=== PATIENT | female | born 1975 | race Caucasian/White ===

== ENCOUNTER 2020-05-21 14:30 | Emergency (ER) | payer OTHER, MEDICAID, SELFPAY ==
[2020-05-21 14:49] VITALS: BP 132/85; PULSE 81; RESP 18; TEMP 36.7; O2SAT 98; BMI 39.4
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
[2020-05-21 16:53] VITALS: BP 130/90; PULSE 78; RESP 18; O2SAT 98
[2020-05-21 17:35] VITALS: BP 117/77; PULSE 87; RESP 18; TEMP 36.8; O2SAT 97
== END 2020-05-21 17:36 | disposition home or self-care (01) ==
PROVIDERS: Emergency Provider Nurse Practitioner Family; PCP Family Medicine
DX: S22.41XA Multiple fractures of ribs, right side, initial encounter for closed fracture (principal); S66.911A Strain of unspecified muscle, fascia and tendon at wrist and hand level, right hand, initial encounter; V89.2XXA Person injured in unspecified motor-vehicle accident, traffic, initial encounter
CPT/HCPCS: 12345; 71100; 73110; 99281; 99283

== ENCOUNTER 2021-04-05 15:17 | Outpatient (CLI) | payer BC, MEDICAID, SELFPAY ==
--- NOTE | 2021-04-05 | XRR_ITS ---
PROCEDURE INFORMATION: Exam: XR Cervical Spine Exam date and time: 04/05/2021 3:58 PM Age: 45 years old Clinical indication: Neck pain TECHNIQUE: Imaging protocol: XR of the cervical spine. Views: 2 or 3 views. COMPARISON: No relevant prior studies available. FINDINGS: Bones/joints: Spinal alignment is normal. Vertebral body height is maintained. There is moderate disc space narrowing at C5-C6 and C6-C7. There is mild multilevel facet spondylosis. There is no acute fracture. Soft tissues: Visible soft tissues are unremarkable. XR/XR cervical spine 3V* [id number] IMPRESSION: No acute findings.
== END 2021-04-05 15:18 | disposition home or self-care (01) ==
PROVIDERS: PCP Family Medicine; Visit Provider Registered Nurse
DX: M54.2 Cervicalgia (principal)
CPT/HCPCS: 72040

== ENCOUNTER → 2021-05-16 11:32 | Outpatient (BNVA) | payer BC, MEDICAID, SELFPAY | PROVIDERS: PCP Family Medicine; Visit Provider Specialist | DX: R20.0 Anesthesia of skin (principal); R20.2 Paresthesia of skin | CPT/HCPCS: 95910 ==

== ENCOUNTER 2021-06-10 17:06 | Outpatient (CLI) | payer BC, MEDICAID, SELFPAY ==
--- NOTE | 2021-06-10 | XRR_ITS ---
PROCEDURE INFORMATION: Exam: XR Right Knee Exam date and time: 06/10/2021 12:00 AM Age: 45 years old Clinical indication: Pain; Knee; Right; Additional info: Chronic bilateral knee pain TECHNIQUE: Imaging protocol: XR Right knee. Views: 3 views. COMPARISON: No relevant prior studies available. FINDINGS: Bones/joints: Mild lateral compartment and patellofemoral joint productive degenerative changes. Soft tissues: Normal. XR/XR knee RT 3V* [id number] IMPRESSION: Mild lateral compartment and patellofemoral joint osteoarthritis.
--- NOTE | 2021-06-10 | XRR_ITS ---
PROCEDURE INFORMATION: Exam: XR Left Knee Exam date and time: 06/10/2021 12:00 AM Age: 45 years old Clinical indication: Pain; Knee; Left; Additional info: Chronic bilateral knee pain TECHNIQUE: Imaging protocol: XR Left knee. Views: 3 views. COMPARISON: No relevant prior studies available. FINDINGS: Bones/joints: Mild tricompartmental joint space narrowing of the knee. No evidence of fracture. Soft tissues: Normal. XR/XR knee LT 3V* [id number] IMPRESSION: 1. No acute findings. 2. Mild tricompartmental DJD.
== END 2021-06-10 17:07 | disposition home or self-care (01) ==
LOC: RAD 17:16
PROVIDERS: PCP Family Medicine; Visit Provider Family Medicine
DX: M17.0 Bilateral primary osteoarthritis of knee (principal)
CPT/HCPCS: 73562

== ENCOUNTER 2021-07-27 10:29 | Outpatient (CLI) | payer OTHER, SELFPAY ==
--- NOTE | 2021-07-27 10:39 | XR_ITS ---
WS: [id number] Lumbar spine, 3 views, 07/27/2021 Clinical Data: BACK PAIN Comparison: None. Findings: No compression fractures or subluxation is seen. No disc space narrowing is seen. The transverse proc esses and SI joints are normal. There is a slight levoscoliosis. There is a large amount of fecal material throughout the colon. XR/XR lumbar spine 2-3V* [id number] Impression: Slight levoscoliosis of the lumbar spine.
== END 2021-07-27 10:30 | disposition home or self-care (01) ==
PROVIDERS: PCP Family Medicine; Visit Provider Dermatology
DX: Z02.71 Encounter for disability determination (principal); M54.5 Low back pain; M41.86 Other forms of scoliosis, lumbar region
CPT/HCPCS: 72100

== ENCOUNTER → 2024-05-15 14:57 | Outpatient (CLI) | payer BC, MEDICAID, SELFPAY ==
--- NOTE | 2024-05-15 15:17 | MM_ITS ---
WS: [id number] BILATERAL 3D TOMOSYNTHESIS DIGITAL SCREENING MAMMOGRAPHY WITH CAD CLINICAL INFORMATION: SCREEN HISTORY: Screening mammogram. No current complaints. COMPARISON: 2018 TECHNIQUE: Bilateral CC and MLO views. FINDINGS: Scattered fibroglandular densities bilaterally. Ovoid nodular density upper outer LEFT breast mid to anterior depth appears new compared to previous. This measures approximately 6 mm. Recommend further evaluation with LEFT breast diagnostic mammography and ultrasound. RIGHT breast is unchanged and unremarkable. MM/[place] [id number] IMPRESSION: BI-RADS: 0-Incomplete: Need additional imaging evaluation FOLLOW UP: Need Additional Imaging Recommend LEFT breast diagnostic mammography and ultrasound.
== END | disposition home or self-care (01) ==
LOC: RAD 14:57
PROVIDERS: PCP Family Medicine; Visit Provider Nurse Practitioner Family
DX: Z12.31 Encounter for screening mammogram for malignant neoplasm of breast (principal); R92.323 Mammographic fibroglandular density, bilateral breasts; N63.21 Unspecified lump in the left breast, upper outer quadrant
CPT/HCPCS: 77063; 77067

== ENCOUNTER 2024-06-26 09:27 | Outpatient (CLI) | payer BC, MEDICAID, SELFPAY ==
--- NOTE | 2024-06-26 09:33 | MM_ITS ---
WS: [id number] LEFT 3D TOMOSYNTHESIS DIGITAL MAMMOGRAPHY WITH CAD CLINICAL INFORMATION: INCONCLUSIVE MAMMOGRAM HISTORY: Additional views COMPARISON: 05/15/2024 TECHNIQUE: 3 views of the left breast were obtained. FINDINGS: Scattered fibroglandular densities of the left breast. Stable 6 mm small ovoid nodule upper outer LEF T breast. Ultrasound is pending. No new abnormalities. ULTRASOUND BREAST LEFT TECHNIQUE: Ultrasound left breast focused area of concern. CLINICAL INFORMATION: INCONCLUSIVE MAMMOGRAM FINDINGS: Ultrasound upper outer quadrant LEFT breast. Tiny cyst in the 1 o'clock position 1 cm from the nipple . No other suspicious abnormalities. No suspicious lesions to target for biopsy. Recommend return to annual screening mammography. MM/[place] [id number] IMPRESSION: BI-RADS: 2-Benign FOLLOW UP: 1 Year Follow-up Recommend return to annual screening mammography.
== END 2024-06-26 09:28 | disposition home or self-care (01) ==
PROVIDERS: PCP Family Medicine; Visit Provider Family Medicine
DX: R92.2 Inconclusive mammogram (principal); R92.323 Mammographic fibroglandular density, bilateral breasts
CPT/HCPCS: 76642; 77061; G0279